=== PATIENT | male | born 1980 | race Caucasian/White ===

== ENCOUNTER 2021-08-08 21:06 | Emergency (ER) | payer SELFPAY ==
[2021-08-08 21:14] VITALS: BP 110/76; PULSE 74; RESP 18
--- NOTE | 2021-08-08 22:43 | ED ---
Alcohol HPI - General Chief Complaint: Alcohol Stated Complaint: ETOH Time Seen by Provider: 08/08/21 21:09 Source: police, EMS Mode of arrival: EMS - History of Present Illness Initial Comments: Patient's 41-year-old man brought here by law enforcement after he was found to be intoxicated in public. When I interview the patient, he denies complaints. He denies fall or other trauma. Patient states he had been drinking. He requests to be left alone. MD Complaint: alcohol intoxication Last Drink: just [employer] Recent Trauma: No Associated Symptoms: denies other symptoms Treatments Prior to Arrival: none - Related Data Home Medications Medication Instructions Recorded Confirmed Losartan Potassium 100 mg PO DAILY 08/08/21 08/08/21 amLODIPine [Norvasc] 10 mg PO DAILY 08/08/21 08/08/21 Allergies Allergy/AdvReac Type Severity Reaction Status Date / Time No Known Allergies Allergy Verified 08/08/21 22:11 Review of Systems ROS Statement: Those systems with pertinent positive or pertinent negative responses have been documented in the HPI. ROS Other: All systems not noted in ROS Statement are negative. Cardiovascular: Denies: chest pain Gastrointestinal: Denies: abdominal pain Musculoskeletal: Denies: back pain Neurological: Denies: headache Past Medical History Smoking Status: Current every day smoker Past Alcohol Use History: Abuse, Daily General Exam General appearance: alert, in no apparent distress, appears intoxicated Head exam: Present: atraumatic, normocephalic Eye exam: Present: normal appearance, PERRL, EOMI, nystagmus. Absent: scleral icterus, conjunctival injection Neck exam: Present: normal inspection, full ROM. Absent: tenderness Respiratory exam: Present: normal lung sounds bilaterally. Absent: respiratory distress, wheezes, rales, rhonchi, stridor, chest wall tenderness Cardiovascular Exam: Present: regular rate, normal rhythm, normal heart sounds. Absent: systolic murmur, diastolic murmur, rubs, gallop GI/Abdominal exam: Present: soft. Absent: distended, tenderness, guarding Extremities exam: Present: normal inspection Back exam: Present: normal inspection Neurological exam: Present: alert, CN II-XII intact, normal gait. Absent: motor sensory deficit Skin exam: Present: warm, dry, intact, normal color. Absent: rash Course Vital Signs 08/08/21 21:11 Pulse Rate 74 Respiratory 18 Rate Blood Pressure 110/76 O2 Sat by Pulse 97 Oximetry Medical Decision Making - Medical Decision Making Patient is a 41-year-old man brought here to have evaluation for public intoxication. Patient himself does not have complaint. Exam is unremarkable. I was informed that the patient had eloped after I had seen and evaluated Disposition Clinical Impression: Alcoholic intoxication Disposition: Left Against Medical Advice Condition: Undetermined Instructions (If sedation given, give patient instructions): Alcohol Intoxication (ED) Is patient prescribed a controlled substance at d/c from ED?: No Referrals: None,Stated [Primary Care Provider] - 1-2 days
== END 2021-08-08 22:13 | disposition left against medical advice (07) ==
LOC: EC 21:06
DX: F17.200 Nicotine dependence, unspecified, uncomplicated (principal)
CPT/HCPCS: 99284